=== PATIENT | female | born 1955 | race Caucasian/White ===

== ENCOUNTER → 2016-11-15 | Outpatient (CLI) | payer OTHER | LOC: RAD 09:44 | PROVIDERS: ATTEND Family Medicine | DX: I27.2 Other secondary pulmonary hypertension (principal) | CPT/HCPCS: 71020 ==

== ENCOUNTER → 2016-11-15 | Outpatient (REF) | payer OTHER ==
[2016-11-15 10:50] LABS: ANION GAP 13.6 MEQ/L (3-15)
== END ==
LOC: LAB 09:40
PROVIDERS: ATTEND Family Medicine
DX: E11.9 Type 2 diabetes mellitus without complications (principal)
CPT/HCPCS: 80048; 83036

== ENCOUNTER → 2016-12-27 | Outpatient (REF) | payer OTHER ==
[2016-12-27 15:07] LABS: BASOPHILS % (AUTO) 0 % (0-2); EOSINOPHILS # (AUTO) 0.2 10^3uL; EOSINOPHILS % (AUTO) 2 % (0-4); LYMPHOCYTES # (AUTO) 1.5 X10^3; MEAN CORPUSCULAR HGB CONC 33.2 g/dL (31.0-37.0); MEAN CORPUSCULAR VOLUME 94 FL (80-100); MEAN PLATELET VOLUME 10.3 FL (6.0-9.5); MONOCYTES # (AUTO) 0.7 X10^3; MONOCYTES % (AUTO) 7 % (3-11); NEUTROPHILS # (AUTO) 7.6 X10^3; NEUTROPHILS % (AUTO) 76 % (51-67); PLATELET COUNT 311 10^3uL (150-450); WHITE BLOOD COUNT 9.96 10^3uL (4.0-11.0)
[2016-12-27 15:09] LABS: MEAN CORPUSCULAR HEMOGLOBIN 31.3 PG (26.0-34.0)
[2016-12-27 15:38] LABS: ALBUMIN 3.6 g/dL (3.4-5.0); ANION GAP 14.7 MEQ/L (3-15); CALCULATED IONIZED CALCIUM 4.1 mg/dL (3.8-4.6); TOTAL PROTEIN 6.8 g/dL (6.4-8.5)
== END ==
LOC: LAB 14:39
PROVIDERS: ATTEND Family Medicine
DX: E03.8 Other specified hypothyroidism (principal); E08.44 Diabetes mellitus due to underlying condition with diabetic amyotrophy; E11.9 Type 2 diabetes mellitus without complications
CPT/HCPCS: 80053; 82306; 84443; 85025

== ENCOUNTER → 2016-12-29 | Outpatient (REF) | payer OTHER | LOC: LAB 13:48 | PROVIDERS: ATTEND Family Medicine | DX: N28.89 Other specified disorders of kidney and ureter (principal) | CPT/HCPCS: 82607; 82746; 83540; 83550 ==

== ENCOUNTER → 2017-01-11 | Outpatient (REF) | payer OTHER ==
[~2017-01-11] MED LIST: AC325T PO; ALBU8.5H4 IH; ALPR.5T PO; AMOX1TAB12 PO; APIX5TAB PO; ASCO500T7 PO; ASPI-818 PO; ATOR20TA PO; BENZ200C3 PO; CALC300T10 PO; CEFD300C PO; D50KC PO; DICL100G13 TOP; DOCU100T2 PO; DRON2.5C10 PO; DULO60CA7 PO; ERGO2000 PO; ERYT-95 PO; ERYT200S PO; EXEN5PEN2; FERR-74 PO; FLUD0.1T PO; HYDR-3702 PO; HYDR-3811 PO; INSU100V2 SC; INSU100V32 SC; INSU100V8 SC; INSU300I SQ; K-ROCEP1PB IV; LD5PT TOP; LEVO50TA6 PO; LISI10TA; LISI5TAB14 PO; LSNP20T PO; MAG30ORA PO; MAGN400O7 PO; METF-473; METO10TA3 PO; METO5TAB75 PO; ONDA4TAB8 PO; ONDAN4ODT PO; PAMI30VI8 SC; PANT40TA3 PO; POLY17PO2 PO; POLY17PO6 PO; POLY1DRO2 OS; POTA20IV IV; PRC25SU PR; PROM50SU11 RC; PROMETHAZINE TD; SCOP1PAT10 TD; SIMV20TA; SITA25TA PO; SOTA80TA PO; STL80T PO; TBDX2.5OP OS; TRAZ-28 PO; VANCORAL PO; ZLP10T PO; ZOLP5TAB PO; [UNRECOGNIZED DRUG - CODE] MM; [UNRECOGNIZED DRUG - CODE] PO
[2017-01-11 15:53] LABS: BILIRUBIN,URINE Negative (Negative); CLARITY,URINE Cloudy; COLOR,URINE Yellow; GLUCOSE, URINE (UA) Negative (Negative); LEUKOCYTE ESTERASE ,URINE 1+ (Negative); UROBILINOGEN,URINE 0.2 mg/dL (0.2-1.0)
[2017-01-11 16:03] LABS: URINE CENTRIFUGED VOLUME 12 mL
[2017-01-11 16:47] LABS: ALBUMIN 3.3 g/dL (3.4-5.0); ANION GAP 13.4 MEQ/L (3-15); PHOSPHORUS 5.3 mg/dL (2.4-4.9)
== END ==
LOC: LAB 14:50 → EDSTATUS 14:52 → LAB 14:53
PROVIDERS: ATTEND Family Medicine
DX: I47.1 Supraventricular tachycardia (principal); E11.9 Type 2 diabetes mellitus without complications; I48.0 Paroxysmal atrial fibrillation
CPT/HCPCS: 80069; 81003; 81015; 87077; 87088; 87186

== ENCOUNTER → 2017-01-20 | Outpatient (CLI) | payer OTHER ==
[2017-01-20 10:21] LABS: ANION GAP 16.3 MEQ/L (3-15)
--- NOTE | 2017-01-20 10:44 | Diagnostic Imaging Report ---
INDICATION: Stage II chronic renal disease. FINDINGS: The right kidney measures 10.2 x 4.3 cm with cortex 1.2 cm. The left kidney measures 9 x 4.3 cm with renal cortex 1.5 cm. Good preservation of corticomedullary junction. No masses are demonstrated. No hydronephrosis. No calculi are seen. Doppler imaging shows normal-appearing waveforms and peak velocities. There is noted pleural effusion. IMPRESSION: 1. Normal-appearing kidneys. 2. Moderate pleural effusion noted. Dictated by: Dictated on workstation # [id number]
--- NOTE | 2017-01-20 10:48 | Diagnostic Imaging Report ---
INDICATION: Evaluation for urine retention. FINDINGS: The bladder measures 306 mL on prevoid with smooth bladder wall. Post void volume is 197 mL. Bilateral ureteral jets are demonstrated. IMPRESSION: There is moderate urine retention post void. Dictated by: Dictated on workstation # [id number]
== END ==
LOC: RAD 08:50
PROVIDERS: ATTEND Internal Medicine Nephrology
DX: N18.3 Chronic kidney disease, stage 3 (moderate) (principal); N18.2 Chronic kidney disease, stage 2 (mild)
CPT/HCPCS: 36415; 51798; 76770; 80048

== ENCOUNTER → 2017-02-02 | Outpatient (REF) | payer OTHER ==
[2017-02-02 12:21] LABS: BASOPHILS % (AUTO) 0 % (0-2); EOSINOPHILS # (AUTO) 0.2 10^3uL; EOSINOPHILS % (AUTO) 2 % (0-4); LYMPHOCYTES # (AUTO) 1.7 X10^3; MEAN CORPUSCULAR HEMOGLOBIN 31.3 PG (26.0-34.0); MEAN CORPUSCULAR HGB CONC 33.3 g/dL (31.0-37.0); MEAN CORPUSCULAR VOLUME 94 FL (80-100); MONOCYTES # (AUTO) 0.8 X10^3; MONOCYTES % (AUTO) 9 % (3-11); NEUTROPHILS # (AUTO) 6.6 X10^3; NEUTROPHILS % (AUTO) 70 % (51-67); PLATELET COUNT 299 10^3uL (150-450); WHITE BLOOD COUNT 9.41 10^3uL (4.0-11.0)
[2017-02-02 13:30] LABS: ALBUMIN 3.4 g/dL (3.4-5.0); ANION GAP 16.3 MEQ/L (3-15)
[2017-02-04 12:50] LABS: KAPPA LIGHT CHAINS SERUM 11.8 mg/dL; LAMBDA LIGHT CHAINS SERUM 3.46 mg/dL (())
== END ==
LOC: LAB 11:56
PROVIDERS: ATTEND Internal Medicine Infectious Disease
DX: N18.2 Chronic kidney disease, stage 2 (mild) (principal); E87.5 Hyperkalemia; E03.9 Hypothyroidism, unspecified
CPT/HCPCS: 80069; 82306; 83883; 85025

== ENCOUNTER → 2017-02-07 | Outpatient (REF) | payer OTHER | LOC: LAB 15:48 | PROVIDERS: ATTEND Internal Medicine Nephrology | DX: N18.2 Chronic kidney disease, stage 2 (mild) (principal); E87.5 Hyperkalemia; E03.9 Hypothyroidism, unspecified | CPT/HCPCS: 82570; 84156 ==

== ENCOUNTER → 2017-02-23 | Outpatient (REF) | payer OTHER ==
[~2017-02-23] MED LIST changes: -D50KC PO; +[UNRECOGNIZED DRUG - CODE] PO
[2017-02-23 12:52] LABS: ANION GAP 17.9 MEQ/L (3-15)
== END ==
LOC: LAB 11:56
PROVIDERS: ATTEND Internal Medicine Nephrology
DX: N18.2 Chronic kidney disease, stage 2 (mild) (principal); E87.6 Hypokalemia; E87.79 Other fluid overload
CPT/HCPCS: 80048

== ENCOUNTER → 2017-03-02 | Outpatient (REF) | payer OTHER ==
[2017-03-02 14:06] LABS: ALBUMIN 3.9 g/dL (3.4-5.0); ANION GAP 16.2 MEQ/L (3-15)
== END ==
LOC: LAB 13:50
PROVIDERS: ATTEND Internal Medicine Nephrology
DX: N18.2 Chronic kidney disease, stage 2 (mild) (principal); E87.6 Hypokalemia; E87.79 Other fluid overload
CPT/HCPCS: 80069